=== PATIENT | female | born 1980 | race American Indian/Alaskan Native ===

== ENCOUNTER 2017-07-07 18:42 | Emergency (ER) | payer MEDICAID ==
[2017-07-07 19:34] LABS: Hematocrit 36.7 % (30.3-42.9); Mean Corpuscular Hemoglobin 28 pg (28-32); Mean Corpuscular Volume 85 fl (79-97); White Blood Count 9.8 K/mm3 (4.5-11.0)
[2017-07-07 19:35] LABS: Basophils % (Auto) 0.6 % (0.0-1.8); Eosinophils % (Auto) 3.1 % (0.0-4.3); Mean Corpuscular HGB Conc 33 % (30-34); Platelet Count 250 K/mm3 (140-440); Red Cell Distribution Width 14.5 % (13.2-15.2)
[2017-07-07 20:23] LABS: Bilirubin,Urine NEG (Negative); Blood,Urine SM (Negative); Ketones,Urine NEG (Negative); Leukocyte Esterase,Urine NEG (Negative); Mucus,Urine 1+ /HPF; Nitrite,Urine NEG (Negative); Protein,Urine <15 mg/dL mg/dL (Negative)
[2017-07-07 21:20] LABS: Alanine Aminotransferase 9 units/L (7-56); Albumin 4.1 g/dL (3.9-5); Albumin/Globulin Ratio 1.2 %; Alkaline Phosphatase 55 units/L (35-129); Anion Gap 18 mmol/L; Blood Urea Nitrogen 7 mg/dL (7-17); Calcium 9.3 mg/dL (8.4-10.2); Carbon Dioxide 25 mmol/L (22-30); Chloride 98.4 mmol/L (98-107); Glucose 86 mg/dL (65-100); Lipase 29 units/L (13-60); Potassium 4.3 mmol/L (3.6-5.0); Sodium 137 mmol/L (137-145); Total Protein 7.5 g/dL (6.3-8.2)
[2017-07-07] MEDS ORDERED: TORADOL IM ONE (21:34)
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
--- NOTE | 2017-07-07 23:39 | Ultrasound Report ---
FINAL REPORT PROCEDURE: Pelvic ultrasound transabdominal and transvaginal imaging with Doppler evaluation of the ovaries. TECHNIQUE: Real-time transabdominal sonography in multiple planes of the pelvis was performed. The pelvic structures were not optimally visualized. Transvaginal sonography was then performed to better evaluate the structures and/or abnormalities described below with image documentation. Grayscale, color flow Doppler imaging and velocity spectral waveform analysis of the ovaries was employed (duplex imaging). CPT 57418, [address], [place] [address] HISTORY: suprapubic pain COMPARISON: No prior studies are available for comparison. FINDINGS: UTERUS Size: 9.9 x 4.6 x 5.3 cm. Endometrial thickness: 8 mm. Orientation: anteverted. Cervix: Normal. Fibroids/masses: None. RIGHT Ovary: 3.1 x 1.5 x 3 cm. Appearance: Normal. Doppler images: Normal spectral waveforms and color flow. The systolic and diastolic velocities are within normal limits. LEFT Ovary: 4.1 x 2.2 x 3.3 cm. Appearance: There is a dominant cyst measuring 25 millimeters.. Doppler images: Normal spectral waveforms and color flow. The systolic and diastolic velocities are within normal limits. Pelvic fluid: None. Other: None. IMPRESSION: The uterus and right ovary have normal appearance. There is a 25 millimeter dominant simple cyst on the left ovary.
--- NOTE | 2017-07-07 23:40 | Ultrasound Report ---
FINAL REPORT PROCEDURE: Pelvic ultrasound transabdominal and transvaginal imaging with Doppler evaluation of the ovaries. TECHNIQUE: Real-time transabdominal sonography in multiple planes of the pelvis was performed. The pelvic structures were not optimally visualized. Transvaginal sonography was then performed to better evaluate the structures and/or abnormalities described below with image documentation. Grayscale, color flow Doppler imaging and velocity spectral waveform analysis of the ovaries was employed (duplex imaging). CPT 16920, 79496, [place] [address] HISTORY: suprapubic pain COMPARISON: No prior studies are available for comparison. FINDINGS: UTERUS Size: 9.9 x 4.6 x 5.3 cm. Endometrial thickness: 8 mm. Orientation: anteverted. Cervix: Normal. Fibroids/masses: None. RIGHT Ovary: 3.1 x 1.5 x 3 cm. Appearance: Normal. Doppler images: Normal spectral waveforms and color flow. The systolic and diastolic velocities are within normal limits. LEFT Ovary: 4.1 x 2.2 x 3.3 cm. Appearance: There is a dominant cyst measuring 25 millimeters.. Doppler images: Normal spectral waveforms and color flow. The systolic and diastolic velocities are within normal limits. Pelvic fluid: None. Other: None. IMPRESSION: The uterus and right ovary have normal appearance. There is a 25 millimeter dominant simple cyst on the left ovary.
[2017-07-07 23:58] VITALS: BP 153/110
== END 2017-07-08 00:16 | disposition home or self-care (01) ==
LOC: ED 18:42
DX: N83.209 Unspecified ovarian cyst, unspecified side (principal); J45.909 Unspecified asthma, uncomplicated; I10 Essential (primary) hypertension; J44.9 Chronic obstructive pulmonary disease, unspecified; F17.200 Nicotine dependence, unspecified, uncomplicated
CPT/HCPCS: 36415; 76830; 80053; 81001; 81025; 83690; 85025; 93975; 96372; 99284; J1885